=== PATIENT | male | born 1995 | race Caucasian/White ===

== ENCOUNTER → 2024-11-29 | Outpatient (CLI) | payer BC, SELFPAY ==
[2024-11-29 13:09] LABS: Basophils # (Auto) 0.1 Thou/mm3 (0.0-0.2); Basophils % (Auto) 1 % (0-2.5); Eosinophils # (Auto) 0.5 Thou/mm3 (0.0-0.5); Eosinophils % (Auto) 5 % (0-10); Hematocrit 45.8 % (41.0-53.0); Hemoglobin 16.1 g/dL (13.5-16.0); Immature Granulocytes % (Auto) 0 % (0-0); Immature Granulocytes Auto 0.03 Thou/mm3 (0.00-0.00); Lymphocytes # (Auto) 3.8 Thou/mm3 (1.0-4.8); Lymphocytes % (Auto) 37 % (10-50); Mean Corpuscular HGB Conc 35.2 g/dl (31.0-37.0); Mean Corpuscular Hemoglobin 30.1 pg (25.0-35.0); Mean Corpuscular Volume 86 fL (80-100); Monocytes # (Auto) 1.1 Thou/mm3 (0.0-0.8); Monocytes % (Auto) 11 % (0-12); Neutrophils # (Auto) 4.7 Thou/mm3 (1.8-7.7); Neutrophils % (Auto) 47 % (37-80); Nucleated Red Blood Cell % 0 /100 WBC (0); Platelet Count 333 Thou/mm3 (140-440); RDW Standard Deviation 37.7 fL (35.1-43.9); Red Blood Count 5.34 Miln/mm3 (4.50-5.90); White Blood Count 10.1 Thou/mm3 (3.8-10.6)
[2024-11-29 13:22] LABS: Alanine Aminotransferase 37 U/L (10-49); Albumin, Serum 5.1 gm/dL (3.5-5.0); Albumin/Globulin Ratio 1.7 (1.2-2.2); Alkaline Phosphatase 64 U/L (46-116); Anion Gap 9 (7-16); Aspartate Amino Transferase 34 U/L (0-34); BUN/Creatinine Ratio 13 Ratio (12-20); Bilirubin,Total 0.7 mg/dL (0.3-1.2); Blood Urea Nitrogen 14 mg/dL (9-23); C-Reactive Protein < 0.5 mg/dL (0.0-0.9); Calcium 9.8 mg/dL (8.3-10.6); Calcium (Corrected) 9.8 mg/dL (8.5-10.1); Carbon Dioxide 25.8 mMol/L (20.0-31.0); Chloride 106 mMol/L (98-107); Creatinine (Component) 1.1 mg/dL (0.6-1.3); Glucose 86 mg/dL (74-106); Osmolality,Calculated 280 (275-295); Potassium 3.7 mMol/L (3.4-5.1); Sodium 141 mMol/L (136-145); Total Protein 8.1 gm/dL (5.7-8.2); eGFR > 60 See Note
[2024-11-29 14:41] LABS: Sed Rate (ESR) 4 mm/hr (0-15)
== END | disposition home or self-care (01) ==
LOC: COPL 11:36
PROVIDERS: PCP Internal Medicine; Referring Provider Internal Medicine; Visit Provider Internal Medicine
DX: M45.9 Ankylosing spondylitis of unspecified sites in spine (principal); Z92.25 Personal history of immunosuppression therapy
CPT/HCPCS: 36415; 80053; 85025; 85652; 86140